=== PATIENT | male | born 1950 | race Hispanic/Latino ===

== ENCOUNTER 2019-03-12 09:57 | Emergency (ER) | payer MEDICARE, OTHER ==
[2019-03-12] MEDS ORDERED: NAPROXEN 500 MG TABLET ONE (11:51)
== END 2019-03-12 12:00 | disposition home or self-care (01) ==
LOC: EDH 09:57
DX: S86.002A Unspecified injury of left Achilles tendon, initial encounter (principal); R60.0 Localized edema; Z90.49 Acquired absence of other specified parts of digestive tract; Z98.890 Other specified postprocedural states; X50.1XXA Overexertion from prolonged static or awkward postures, initial encounter; Y93.89 Activity, other specified; Y92.098 Other place in other non-institutional residence as the place of occurrence of the external cause; Y99.8 Other external cause status
CPT/HCPCS: 29515; 73590; 93971